=== PATIENT | male | born 1955 | race Asian ===

== ENCOUNTER 2020-06-30 15:31 | Emergency (ER) | payer BC ==
[2020-06-30 16:55] LABS: Basophils % (Auto) 0.8 % (0.0-1.8); Eosinophils # (Auto) 0.2 K/mm3 (0.0-0.4); Eosinophils % (Auto) 4.1 % (0.0-4.3); Hematocrit 40.9 % (35.5-45.6); Hemoglobin 13.7 gm/dl (11.8-15.2); Lymphocytes # (Auto) 1.3 K/mm3 (1.2-5.4); Lymphocytes % (Auto) 25.5 % (13.4-35.0); Mean Corpuscular HGB Conc 34 % (32-34); Mean Corpuscular Volume 92 fl (84-94); Monocytes # (Auto) 0.5 K/mm3 (0.0-0.8); Monocytes % (Auto) 8.8 % (0.0-7.3); Platelet Count 194 K/mm3 (140-440); Red Blood Count 4.43 M/mm3 (3.65-5.03); Red Cell Distribution Width 13.5 % (13.2-15.2)
[2020-06-30 17:19] LABS: Alanine Aminotransferase 9 units/L (7-56); Albumin 4.4 g/dL (3.9-5); BUN/Creatinine Ratio 14; Blood Urea Nitrogen 11 mg/dL (9-20); Calcium 9.7 mg/dL (8.4-10.2); Chol/HDL Ratio 2.11 %; HDL Cholesterol 88 mg/dL (40-59); Hemolysis Index 1; LDL Cholesterol,Direct 95 mg/dL (50-130)
== END 2020-06-30 16:45 | disposition left against medical advice (07) ==
LOC: ED 15:31
DX: Z53.21 Procedure and treatment not carried out due to patient leaving prior to being seen by health care provider (principal)
CPT/HCPCS: 36415; 80053; 80061; 82306; 82607; 83036; 84443; 85025